=== PATIENT | female | born 1975 | race Caucasian/White ===

== ENCOUNTER 2021-10-01 12:08 | Observation (INO) | payer BC ==
[~2021-10-01] VITALS: Ht 162.6 cm; Wt 77.1 kg
--- NOTE | ~2021-10-01 | OP ---
[address] [address] OPERATIVE REPORT Name: REJI HENSON Room: [address] M.RJason#: [id number] Admission: 10/01/21 Attend Phys: Kylie Correa DO Discharge: Date of : 75 Report #: [id number] THIS REPORT FOR: cc: FAM - No family physician/PCP FAM - No family physician/PCP Kylie Correa DO ~ DATE OF SURGERY: 10/01/2021 PREOPERATIVE DIAGNOSIS: Acute appendicitis with localized peritonitis. POSTOPERATIVE DIAGNOSIS: Acute appendicitis with localized peritonitis. FINDINGS: Acutely inflamed appendix with some clear fluid in the right lower quadrant and pelvis. SURGEON: Kylie Correa MD [employer]ER OF [employer] IMPAIRED: Jabari Escobedo, PGY-1 PROCEDURE PERFORMED: Laparoscopic appendectomy. ANESTHESIA: General endotracheal and local. ESTIMATED BLOOD LOSS: 5 mL DRAINS: None. SPECIMENS: Appendix. COMPLICATIONS: None. CONDITION: Stable. DISPOSITION: PACU to the floor. HISTORY OF PRESENT ILLNESS: The patient is a 46-year-old female who presented to the ER with a complaint of right lower quadrant abdominal pain of about 24 hours duration with associated anorexia. She was found to have an elevated white count and CT scan was positive for acute appendicitis. She was then consented for laparoscopic appendectomy. Risks and benefits were discussed in detail. The patient agreed to proceed. DESCRIPTION OF PROCEDURE: The patient was brought to the operating room. She was laid supine on the operating table. SCDs were placed on bilateral lower extremities. Ancef was given in the perioperative period. General endotracheal anesthesia was induced by anesthesia without difficulty. [place] [address] OPERATIVE REPORT Name: REJI HENSON Room: [address] Ethan De Leon.#: [id number] Admission: 10/01/21 Attend Phys: Kylie Correa DO Discharge: Date of : 75 Report #: [id number] and draped in standard sterile fashion. Timeout was performed to verify patient and procedure. A 10 mL of 0.5% Marcaine were injected in the infraumbilical area. Incision was made with 11 blade. Cautery was used for hemostasis, retractors were used to visualize fascia. Fascia was grasped and elevated between 2 Kochers. Fascia was incised using cautery. Peritoneum was bluntly entered using a Inna clamp. Finger was introduced into the abdomen to assure that there were no katie incisional adhesions, none were identified. Two stitches of 0 Vicryl placed on the fascia. Iesha trocar was introduced and secured with 0 Vicryl stitches. Abdomen was insufflated. The patient was placed head down and left side down. Camera was introduced and a brief anterior abdominal exploration was undertaken with findings of acute appendicitis. Two 5 mm trocars were introduced, one in the left lower quadrant, one in the suprapubic area, both under direct visualization. Appendix was grasped and elevated. It was quite distended and inflamed. [place] was used to create a window at the base of the appendix between the appendix and the mesentery. A 45 mm purple load Endo-KATIE stapler was introduced and the base of the appendix was clamped and stapled without difficulty. The mesentery was taken with three fires of a 45 mm purple load Endo-KATIE stapler. Specimen was placed within an EndoCatch bag. Staple lines were inspected. There was one area of bleeding, which was easily controlled with cautery. Hemostasis was assured. Insufflation was briefly taken down and there was no further bleeding noted. Right lower quadrant and pelvis were copiously irrigated until clear. Staple lines were once again inspected and appeared to be dry. The patient was returned to the supine position. Trocars were removed under direct visualization. The abdomen was completely desufflated. Iesha Trocar was removed and EndoCatch bag was removed with specimen intact. It was handed off for permanent pathology. Kochers were placed on the fascia of the infraumbilical port. Previously placed 0 Vicryl stitches were removed and a 0 Vicryl stitch was placed in [id number] fashion with excellent approximation of the fascia. An additional 10 mL of 0.25% Marcaine were injected in the fascia. All wounds were closed with 4-0 Monocryl. A total of 30 mL of 0.25% Marcaine were used to anesthetize the wounds. Wounds were then cleansed and covered with Dermabond. The patient was then allowed to awaken from anesthesia, was extubated and transported to the recovery room with no further difficulties. Counts were correct at the conclusion of the case. By: 11 [id number] Correa DO /vincent
--- NOTE | ~2021-10-01 | EKG ---
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
[2021-10-01 12:16] VITALS: BP 129/76
[2021-10-01 12:54] LABS: ABSOLUTE LYMPHOCYTES 2.7 thou/uL (0.8-5.3); ABSOLUTE MONOCYTES 1.1 thou/uL (0.0-1.2); ABSOLUTE NEUTROPHILS 14.3 thou/uL (1.6-8.1); BASOPHILS 0.3 %; EOSINOPHILS 0.2 %; HEMATOCRIT 38.3 % (37.0-47.0); LYMPHOCYTES 14.9 %; MCH 29.6 pg (26.0-34.0); MCHC 33.9 g/dL (28.0-37.0); MCV 87.3 fL (80.0-100.0); MONOCYTES 5.8 %; MPV 7.9 fl. (7.2-11.1); NUCLEATED RBCS 0 /100WBC; PLATELET COUNT* 311 thou/uL (150-400); POLYS 78.8 %; RBC 4.39 mil/uL (4.20-5.00); RDW-CV 12.7 % (10.5-14.5); URINE BILIRUBIN NEGATIVE (Negative); URINE BLOOD TRACE (Negative); URINE CLARITY CLOUDY; URINE COLOR YELLOW; URINE GLUCOSE-RANDOM NEGATIVE (Negative); URINE KETONES NEGATIVE (Negative); URINE LEUKOCYTES-REFLEX NEGATIVE (Negative); URINE NITRITE-REFLEX NEGATIVE (Negative); URINE PROTEIN NEGATIVE (Negative); URINE SPECIFIC GRAVITY >= 1.030 (1.005-1.030); URINE UROBILINOGEN 0.2 E.U./dl (0.2-1.0); WBC 18.1 thou/uL (4.0-11.0)
[2021-10-01 13:00] LABS: SQUAMOUS >10 Many /LPF (0-3); URINE WBC-REFLEX None Seen /HPF (0-5)
[2021-10-01 13:01] LABS: BACTERIA-REFLEX >30 Many /HPF (None Seen); CASTS None Seen /LPF (None Seen); CRYSTALS None Seen /LPF (None Seen); MUCUS >6 Heavy strn/LPF (None Seen); URINE RBC 0-2 Rare /HPF (0-2)
[2021-10-01 13:02] LABS: CALCIUM 9.1 mg/dL (8.5-10.1); CREATININE 1.1 mg/dL (0.6-1.3); POTASSIUM 3.6 mmol/L (3.5-5.1)
[2021-10-01 13:07] LABS: ALBUMIN 3.3 g/dL (3.4-5.0); TOTAL BILIRUBIN 0.7 mg/dL (<0.1-1.0); TOTAL PROTEIN 7.4 g/dL (6.4-8.2)
[2021-10-01 17:45] VITALS: BP 132/72
[2021-10-02 00:10] VITALS: BP 115/75
[2021-10-02 04:07] VITALS: BP 128/75
[2021-10-02 04:44] LABS: HEMOGLOBIN 12.4 gm/dL (12.0-15.0); MCH 29.4 pg (26.0-34.0); MCHC 33.4 g/dL (28.0-37.0); MCV 88.1 fL (80.0-100.0); MPV 7.7 fl. (7.2-11.1); RBC 4.2 mil/uL (4.20-5.00); RDW-CV 12.7 % (10.5-14.5); WBC 16.3 thou/uL (4.0-11.0)
[2021-10-02 04:49] LABS: CALCIUM 9.1 mg/dL (8.5-10.1); CREATININE 1.1 mg/dL (0.6-1.3)
[2021-10-02 04:54] LABS: ALBUMIN 2.9 g/dL (3.4-5.0); TOTAL BILIRUBIN 0.6 mg/dL (<0.1-1.0); TOTAL PROTEIN 7.1 g/dL (6.4-8.2)
[2021-10-02 08:13] VITALS: BP 118/70
[2021-10-02 11:34] VITALS: BP 118/70
[2021-10-02] MEDS ORDERED: APAP W/CODEINE1 TA2 PO (13:37)
--- NOTE | 2021-10-05 18:06 | PATH ---
[address] [address] PATHOLOGY RPT PROCEDURE Name: REJI HENSON Room: [address] Ethan Malave#: [id number] Admission: 10/01/21 Date of : 75 Discharge: 10/02/21 Report #: [id number] Path Case #: [id number] [facility] Accession Number: [id number] . 01 Material submitted: . appendix - APPENDIX . 01 Clinical history: . LAPAROSCOPIC APPENDECTOMY ACUTE APPENDICITIS . 02 Diagnosis: Appendix: - Acute appendicitis, periappendicitis and serositis with serosal endosalpingiosis. . (ROXANA:mml; 10/05/2021) QLM 10/05/2021 1257 Local . 02 Electronically signed: . Musa Llamas MD, Pathologist NPI- [id number] . 01 Gross description: . Fixative: Formalin Labeled: Appendix Appendix length: 9.7 cm Appendix diameter: 0.8-1.4 cm Mesoappendix: Up to 2.0 cm Proximal margin: Stapled Serosa: Pale sanders, smooth to ragged Cut surface: Patent to dilated lumen filled with fecal material Luminal diameter: Up to 0.9 cm Perforation: None identified Lesions/abnormalities: None identified . Proximal margin and bisected tip in cassette A1. Additional patient services representative cross-sections in cassettes A2 and A3. ([facility]; 10/04/2021) QA/[facility] 10/04/2021 1530 Local . 02 Pathologist provided ICD-10: K35.20 . 02 CPT . 565490 Specimen Comment: A courtesy copy of this report has been sent to [phone] Specimen Comment: [place] [address] PATHOLOGY RPT PROCEDURE Name: REJI HENSON CRAIG Room: [address]#: [id number] Admission: 10/01/21 Date of : 75 Discharge: 10/02/21 Report #: [id number] Path Case #: [id number] Performed at: [facility] [address], [place], [place] [id number] MD Chato Keane MD Phone: [phone] Performed at: [address] [facility] [address] [place], [place] [id number] MD Musa Llamas MD Phone: [phone]
== END 2021-10-02 14:04 | disposition home or self-care (01) ==
LOC: M.ERS 12:08 → M.SUR 19:43 → M.TBA 23:08 → M.3W 10-02 00:43
PROVIDERS: Family Medicine; ADMIT Surgery; ATTEND Surgery
DX: K35.30 Acute appendicitis with localized peritonitis, without perforation or gangrene (principal); R63.0 Anorexia; R11.2 Nausea with vomiting, unspecified; Z20.822 Contact with and (suspected) exposure to COVID-19; R68.83 Chills (without fever); Z79.899 Other long term (current) drug therapy